=== PATIENT | female | born 2000 | race Caucasian/White ===

== ENCOUNTER 2021-04-09 16:45 | Inpatient (IN) | payer OTHER ==
[~2021-04-09] VITALS: Ht 149.9 cm; Wt 50.8 kg
[2021-04-09] MEDS ORDERED: KEPPRA 100100 MG/1 M PO (18:22)
[2021-04-09] MEDS ORDERED: ELAVIL 50 MG TA50 MG PO (18:24)
[2021-04-09 18:40] LABS: HEMOGLOBIN 10.3 gm/dl (12.3-15.3); RED BLOOD COUNT 3.98 M/UL (4.00-5.10); WHITE BLOOD COUNT 7.9 K/UL (4.5-11.0)
[2021-04-10] MEDS ORDERED: COLACE100 MG PO (10:38)
[2021-04-10] MEDS ORDERED: IBUPROFEN800 MG PO (10:38)
[2021-04-11 06:15] LABS: HEMOGLOBIN 9.8 gm/dl (12.3-15.3)
[2021-04-11 23:39] LABS: HEMOGLOBIN 9.7 gm/dl (12.3-15.3); RED BLOOD COUNT 3.77 M/UL (4.00-5.10)
[2021-04-11 23:41] LABS: WHITE BLOOD COUNT 11.7 K/UL (4.5-11.0)
[2021-04-12 00:01] LABS: BUN/CREATININE RATIO 8 (0-10)
== END 2021-04-13 20:30 | disposition home or self-care (01) | DRG 806 ==
LOC: GENOP 16:45 → OB 17:25
PROVIDERS: Internal Medicine Pulmonary Disease; Obstetrics & Gynecology; ADMIT Obstetrics & Gynecology
PROC: 0U7C7ZZ Dilation of Cervix, Via Natural or Artificial Opening (ICD-10-PCS; 2021-04-09)
PROC: 10E0XZZ Delivery of Products of Conception, External Approach (ICD-10-PCS; principal; 2021-04-10)
PROC: 10907ZC Drainage of Amniotic Fluid, Therapeutic from Products of Conception, Via Natural or Artificial Opening (ICD-10-PCS; 2021-04-10)
PROC: 3E033VJ Introduction of Other Hormone into Peripheral Vein, Percutaneous Approach (ICD-10-PCS; 2021-04-10)
PROC: 0HQ9XZZ Repair Perineum Skin, External Approach (ICD-10-PCS; 2021-04-10)
DX: O36.5930 Maternal care for other known or suspected poor fetal growth, third trimester, not applicable or unspecified (principal); O86.12 Endometritis following delivery; Z37.0 Single live birth; O99.354 Diseases of the nervous system complicating childbirth; Z20.822 Contact with and (suspected) exposure to COVID-19; Z3A.37 37 weeks gestation of pregnancy; G40.909 Epilepsy, unspecified, not intractable, without status epilepticus; G43.809 Other migraine, not intractable, without status migrainosus; O70.0 First degree perineal laceration during delivery; O14.04 Mild to moderate pre-eclampsia, complicating childbirth
CPT/HCPCS: 36415; 80053; 81001; 82570; 84156; 85014; 85018; 85025; J1580; J2590; J2795; J3010; J7120; U0002